=== PATIENT | female | born 1995 | race Caucasian/White ===

== ENCOUNTER → 2016-07-05 | Outpatient (CLI) | payer OTHER ==
[~2016-07-05] MED LIST: CLON1TAB3 PO; CNC/27 PO; LAMO100T16 PO; QUET300T2 PO
--- NOTE | 2016-07-05 14:19 | DIAGNOSTIC IMAGING REPORT ---
NUCLEAR GASTRIC EMPTYING STUDY CLINICAL HISTORY: Eating disorder. Bloating. Change in bowel habits. COMPARISON STUDY: No priors. TECHNIQUE: Following the oral administration of 1.069 mCi of technetium 99m sulfur colloid in egg sandwich and 8 ounces of water, static abdominal images are obtained anteriorly and posteriorly at 0 minutes, 1 hour, 2 hour, and 4 hour time intervals. Gastric emptying was calculated utilizing the geometric mean method. FINDINGS: There is approximately 82% activity remaining at the 1 hour time interval, 35% remaining at the 2 hour time interval (normal is less than 60%), and 0% activity remaining at the 4 hour time interval (normal is less than 10%). IMPRESSION: Findings are consistent with normal gastric emptying for solids. Electronically signed by: Fabrizio Foster M.D. 07/05/2016 2:18 PM Dictated Date/Time: 07/05/2016 2:17 PM
== END | disposition home or self-care (01) ==
LOC: C.NUCL 08:23
PROVIDERS: ATTEND Nurse Practitioner Family
DX: R14.0 Abdominal distension (gaseous) (principal); F50.9 Eating disorder, unspecified

== ENCOUNTER → 2017-08-27 | Outpatient (CLI) | payer OTHER | END | disposition home or self-care (01) | LOC: C.PAPS 11:39 | PROVIDERS: ATTEND Physician Assistant | DX: Z12.4 Encounter for screening for malignant neoplasm of cervix (principal) ==

== ENCOUNTER → 2017-08-27 | Outpatient (CLI) | payer OTHER | END | disposition home or self-care (01) | LOC: C.LAB1850 09:02 | PROVIDERS: ATTEND Physician Assistant | DX: Z12.4 Encounter for screening for malignant neoplasm of cervix (principal); N91.2 Amenorrhea, unspecified ==